=== PATIENT | male | born 1950 | race Caucasian/White ===

== ENCOUNTER 2017-01-05 17:03 | Observation (INO) | payer BC, MEDICARE ==
--- NOTE | ~2017-01-05 | HP ---
History And Physical [facility] [address] [place]. [address] NAME: WILLIE HUI : 48 STATUS : ADM IN PAT#: [id number] AGE: 66 ADM/REG DATE : 01/05/17 MR#: [id number] REPORT SERV DATE: 01/05/17 DICTATED BY: ADDY HE DATE: 01/05/17 REPORT STATUS : Draft TRANSCRIBED BY: MODL DATE: 01/05/17 DATE OF ADMISSION: 01/05/2017 REASON FOR ADMISSION: This is a Cardiology admission H and P regarding chest discomfort. 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 Today, he was driving to work when he was noticing 2 to 3 out of 10 left substernal chest discomfort. This progressed to him having profound nausea along with some vomiting. He presented to the emergency room at [facility], was worked up for unstable angina and acute myocardial infarction. His troponins were negative. His EKG was unremarkable. Because of his history of coronary disease and the fact that his human resources compliance manager, Dr. Eaton, was at [facility], the patient requested to come here for further evaluation. The patient, as mentioned, has a known history of coronary disease. He sustained an acute anterior myocardial infarction in May of 2016 and underwent two drug-eluting stent placements to the LAD by Dr. Eaton at that time. His post-cardiac catheterization ejection fraction was normal at 55%. In August of 2016, he had recurrent chest discomfort and underwent a treadmill only stress test performed in [facility]. This was negative at that time. The patient did reach a sufficient exercise level. He is completely chest pain free currently and without any symptoms. PAST MEDICAL HISTORY: 1. Notable for coronary artery disease, stent placement in May 2016, two drug- eluting stents placed by Dr. Eaton to the LAD. 2. History of atrial fibrillation, status post atrial fibrillation ablation x2 [address] [facility] in [place]. 3. Prostate carcinoma. Cryo surgery with erectile dysfunction. 4. Hypertension. 5. Attention deficit disorder. 6. History of lacunar CVA. 7. Gout. 8. Hypothyroidism. FAMILY HISTORY: Noncontributory. Negative premature coronary disease. SOCIAL HISTORY: Negative tobacco or alcohol. He is a radiologist. REVIEW OF SYSTEMS: As noted above. All other systems reviewed and negative. PHYSICAL EXAMINATION: GENERAL: No acute distress. VITAL SIGNS: Blood pressure is 130/76, pulse 76, respirations 16. HEENT: No icterus. Good dentition. History And Physical [address] [address] NAME: WILLIE HUI : [birth year] STATUS : ADM IN [facility]#: [id number] AGE: 66 ADM/REG DATE : 01/05/17 MR#: [id number] REPORT SERV DATE: 01/05/17 DICTATED BY: ADDY HE DATE: 01/05/17 REPORT STATUS : Draft TRANSCRIBED BY: MODL DATE: 01/05/17 NECK: Supple. No masses or thyromegaly LUNGS: Breathing comfortably. No rales or wheezes. COR: Normal S1, S2. No S3 or S4. No murmurs, clicks, rubs. No JVD ABD: Soft, nondistended, nontender, no hepatosplenomegaly. EXT: No clubbing, cyanosis or edema. Peripheral pulses 2+/=bilaterally. SKIN: Warm and dry. No visible lesions. MS: Chest wall without deformity, no obvious clavicular fractures. NEURO/PSYCH: Oriented X3. No anxiety or depression. STUDIES: EKG shows sinus rhythm, normal intervals. No evidence for ischemia or infarction. LABORATORY VALUES: Negative troponin x2. IMPRESSION: Recurrent chest discomfort. The patient with known history of coronary disease, status post drug-eluting stent to left anterior descending in 2015. Negative treadmill, only test in August 2016. The patient is very concerned about his potential chances for stent occlusion, and I believe it is reasonable for him to undergo cardiac catheterization for further evaluation given his history of stent placement and negative treadmill test in late August 2016. We will administer aspirin 325 mg. Troponins q.8 hours x3. GS/MODL Addy He M.D. / [id number] CC: Don Eaton M.D.
[~2017-01-05 17:03] MED LIST: ASAB PO; CARTIA XT180 MG/24 PO; COREG3 PO; COZAAR100 MG PO; LEVOTHYROXIN125 MCG PO; LIPITOR40 PO; PLAVIX PO; VITAMIN D31000 UNIT PO; Z100 PO
[2017-01-05] MEDS ORDERED: LEXAPRO10 PO (17:51)
[2017-01-05] MEDS ORDERED: COZAAR100 MG PO (17:52)
[2017-01-05] MEDS ORDERED: CARTIA XT180 MG/24 PO (17:52)
[2017-01-05] MEDS ORDERED: LIPITOR40 PO (17:52)
[2017-01-05] MEDS ORDERED: Z300 PO (17:52)
[2017-01-05] MEDS ORDERED: COREG3 PO (17:53)
[2017-01-05] MEDS ORDERED: SYN112 PO (17:53)
[2017-01-05] MEDS ORDERED: PLAVIX PO (17:54)
[2017-01-05] MEDS ORDERED: NITROSTAT0.4 MG SL (17:54)
[2017-01-05] MEDS ORDERED: ASAB PO (17:54)
[2017-01-06 04:59] LABS: BASOPHILS 0.4 %; BASOPHILS ABSOLUTE 0.04 10/3/uL (0.0-0.16); EOSINOPHILS 1.9 %; HEMATOCRIT 41.3 % (40.0-51.0); IMMATURE GRANULOCYTES 0.3 %; IMMATURE GRANULOCYTES ABSOLUTE 0.03 10/3/uL (0.0-0.11); LYMPHOCYTES 18.7 %; LYMPHOCYTES ABSOLUTE 2.01 10/3/uL (0.67-4.30); MEAN CORPUS HGB CONC 33.9 g/dL (32.0-36.0); MEAN CORPUSCULAR HEMOGLOB 31.2 pg (26.0-34.0); MEAN PLATELET VOLUME 9.8 fL (9.2-13.0); MONOCYTES 10.5 %; MONOCYTES ABSOLUTE 1.13 10/3/uL (0.21-1.20); NEUTROPHILS 68.2 %; NEUTROPHILS ABSOLUTE 7.34 10/3/uL (2.02-8.40); PLATELET COUNT 212 10/3/uL (150-400); RBC DISTRIBUTION WIDTH 13.3 % (12.0-16.0); RED CELL COUNT 4.49 10/6/uL (4.7-6.1); WHITE BLOOD CELLS 10.8 10/3/uL (4.5-10.5)
[2017-01-06 05:00] LABS: MANUAL DIFF NO %
[2017-01-06 05:06] LABS: INTERNATIONAL NORMAL RATI 1.1 UNITS (-); PROTIME (NOT ORD) 13.7 SEC (12.0-14.5)
[2017-01-06 05:24] LABS: CALCIUM, SERUM 8.7 MG/DL (8.5-10.4); CHLORIDE, SERUM 108 MMOL/L (96-112); CO2 (CARBON DIOXIDE) 25 MMOL/L (24-34); CREATININE 1.14 MG/DL (0.70-1.30); GFR AFRICAN AMERICAN 77 ML/MIN (>=60); GFR NON AFRICAN AMERICAN 66 ML/MIN (>=60); GLUCOSE, SERUM 111 MG/DL (60-99); POTASSIUM, SERUM 3.7 MMOL/L (3.5-5.3); SODIUM, SERUM 144 MMOL/L (135-148)
[2017-01-06 05:26] LABS: BUN (BLOOD UREA NITROGEN) 19 MG/DL (6-23); CHOL/HDL RATIO(NOT ORDER) 2.8 (0-5); CHOLESTEROL 121 MG/DL (< 200); HDL CHOLESTEROL 44 MG/DL (> 39); LDL CHOLESTEROL 56 MG/DL (< 130); NON-HDL CHOLESTEROL 77 MG/DL (< 160); TRIGLYCERIDE 109 MG/DL (< 150)
== END 2017-01-06 18:40 | disposition home or self-care (01) ==
LOC: 5NO 17:03
PROVIDERS: Internal Medicine Cardiovascular Disease
DX: I25.110 Atherosclerotic heart disease of native coronary artery with unstable angina pectoris (principal); I25.2 Old myocardial infarction; I48.91 Unspecified atrial fibrillation; I10 Essential (primary) hypertension; F90.9 Attention-deficit hyperactivity disorder, unspecified type; E03.9 Hypothyroidism, unspecified
CPT/HCPCS: 71010; 80048; 80061; 83735; 84484; 85025; 85610; 93005; 93458; 99152; 99153; A9270-GY; C1760; C1769; G0378; J2250; J3010; Q9967